=== PATIENT | female | born 1955 | race Caucasian/White ===

== ENCOUNTER → 2020-03-26 11:00 | Outpatient (BNVA) | payer OTHER, SELFPAY | PROVIDERS: PCP Internal Medicine; Referring Provider Internal Medicine; Visit Provider Hospitalist | DX: Z76.89 Persons encountering health services in other specified circumstances (principal) ==

== ENCOUNTER → 2020-05-01 13:26 | Outpatient (BNVA) | payer OTHER, SELFPAY | PROVIDERS: PCP Internal Medicine; Referring Provider Internal Medicine; Visit Provider Hospitalist | DX: Z13.89 Encounter for screening for other disorder (principal) ==

== ENCOUNTER → 2020-05-25 09:19 | Outpatient (BNVA) | payer OTHER, SELFPAY | PROVIDERS: PCP Internal Medicine; Visit Provider Hospitalist | DX: Z76.89 Persons encountering health services in other specified circumstances (principal) ==

== ENCOUNTER → 2020-08-23 09:25 | Outpatient (BNVA) | payer BC, SELFPAY | PROVIDERS: PCP Internal Medicine; Visit Provider Hospitalist ==

== ENCOUNTER → 2020-12-03 15:26 | Outpatient (BNVA) | payer BC, SELFPAY | PROVIDERS: PCP Internal Medicine; Visit Provider Hospitalist ==

== ENCOUNTER 2021-01-01 09:51 | Outpatient (REF) | payer BC, SELFPAY ==
--- NOTE | 2021-01-01 17:32 | PFT_ITS ---
INDICATION: Evaluation of hyper-reactive airways and cough. METHACHOLINE FINDINGS: The patient underwent a methacholine protocol and was provided with methacholine up to a maximum dose of 60 mg. While she received the methacholine, we monitor closely her spirometry. No significant decrease in the FEV1 nor significant decrease in the [id number]. The patient did not decrease her lung capacity. Therefore, no significant response to the methacholine. INTERPRETATION: This is a negative methacholine challenge. The patient does not appear to have evidence of hyper-reactive airways and unlikely to have a diagnosis of asthma. Clinical correlation warranted. MD ELAINA Lomeli/MODL / [id number]
== END 2021-01-01 09:52 | disposition home or self-care (01) ==
LOC: HO.RESP 09:51
PROVIDERS: PCP Internal Medicine; Visit Provider Hospitalist
DX: R05 Cough (principal)
CPT/HCPCS: 94070; J7674

== ENCOUNTER 2021-02-06 09:58 | Day surgery (SDC) | payer BC, SELFPAY ==
--- NOTE | 2021-02-05 09:03 | P.CONAN_ITS ---
Documented by User: Ela Torres NP 02/05/21 09:05 HPI - Anesthesia Eval Consult details Narrative: 65yo F for Bronchoscopy Fiberoptic PMFSH Active Problems Active Problems: All Active Problems (Updated 08/23/20 @ 22:11 by Chip Erickson MD) Asthma-COPD overlap syndrome (Acute) Pulmonary nodules (Acute) Cough (Acute) Bronchiectasis (Acute) Past Medical History Medical History Asthma-COPD overlap syndrome Breast cancer Bronchiectasis Cough Pulmonary nodules Family History Family History Mother No problems noted. Other Lung cancer Social History Social History Patient Tobacco Use Status: Former Tobacco user Tobacco use type: Cigarette Years Smoked: 12 years Use of substances other than those prescribed or required for medical reasons: No Have you been hit, kicked, punched, or otherwise hurt by someone within the past year? If so, by whom?: No Are you DNR?: No Advance Directives: No Advance Directives Information Provided: No Meds Allergies Allergy/AdvReac Type Severity Reaction Status Date / Time Penicillins Allergy Severe Hives Verified 02/06/21 10:18 procaine [From Novocain] Allergy Mild Hives Verified 02/06/21 10:18 vancomycin Allergy Mild Hives Verified 02/06/21 10:18 Home Medications Medication Instructions Recorded Confirmed Last Taken Type atorvastatin 20 mg tablet 20 mg PO BEDTIME 03/10/20 12/03/20 Unknown History benzonatate 200 mg capsule 200 mg PO TID PRN 03/10/20 12/03/20 12/03/20 15:42 History uxxjuzakjy-sigjujfxmgpeq-hxwilziq 1 - 2 tab PO TID PRN 03/10/20 12/03/20 Unknown History 50 mg-325 mg-40 mg tablet colestipol 1 gram tablet 0 g PO 03/10/20 12/03/20 Unknown History diazepam 10 mg tablet 10 mg PO 03/10/20 12/03/20 Unknown History metformin 500 mg tablet,extended 1,500 mg PO DAILY 03/10/20 12/03/20 Unknown History release 24 hr aspirin 81 mg tablet,delayed 81 mg PO DAILY 03/26/20 12/03/20 02/05/21 History release cholecalciferol (vitamin D3) 50 50 mcg PO DAILY 03/26/20 12/03/20 Unknown History mcg (2,000 unit) capsule ipratropium bromide 42 mcg (0.06 2 INTRANASAL BID 03/26/20 12/03/20 Unknown History %) nasal spray irbesartan 300 1 tab PO DAILY 03/26/20 12/03/20 Unknown History mg-hydrochlorothiazide 12.5 mg tablet lansoprazole 30 mg capsule,delayed 30 mg PO DAILY 03/26/20 12/03/20 Unknown History release dextroamphetamine-amphetamine 20 1 tab PO BID 08/23/20 12/03/20 Unknown History mg tablet eplerenone 50 mg tablet 50 mg PO DAILY 12/03/20 12/03/20 Unknown History Exam Exam Date and Time: February 05, 2021 0903 Narrative Narrative: PFT 12/2020 INTERPRETATION:? This is a negative methacholine challenge.? The patient does not appear to have evidence of hyper-reactive airways and unlikely to have a diagnosis of asthma. Clinical correlation warranted. Assessment and Plan Assessment Anesthesia Assessment: Chart Reviewed Documented by User: Leatha Cortés MD 02/06/21 11:32 [facility] Past Medical History Medical History Asthma-COPD overlap syndrome Breast cancer Bronchiectasis Cough Pulmonary nodules Family History Family History Mother No problems noted. Other Lung cancer Family history of problems with anesthesia: No Surgical History History of Problems with Anesthesia: No Social History Social History Patient Tobacco Use Status: Former Tobacco user Tobacco use type: Cigarette Years Smoked: 12 years Use of substances other than those prescribed or required for medical reasons: No Have you been hit, kicked, punched, or otherwise hurt by someone within the past year? If so, by whom?: No Are you DNR?: No Advance Directives: No Advance Directives Information Provided: No Meds Allergies Allergy/AdvReac Type Severity Reaction Status Date / Time Penicillins Allergy Severe Hives Verified 02/06/21 10:18 procaine [From Novocain] Allergy Mild Hives Verified 02/06/21 10:18 vancomycin Allergy Mild Hives Verified 02/06/21 10:18 Home Medications Medication Instructions Recorded Confirmed Last Taken Type atorvastatin 20 mg tablet 20 mg PO BEDTIME 03/10/20 12/03/20 Unknown History benzonatate 200 mg capsule 200 mg PO TID PRN 03/10/20 12/03/20 12/03/20 15:42 History ugmeuyridh-oqddzcqscbdfy-bihrrhsc 1 - 2 tab PO TID PRN 03/10/20 12/03/20 Unknown History 50 mg-325 mg-40 mg tablet colestipol 1 gram tablet 0 g PO 03/10/20 12/03/20 Unknown History diazepam 10 mg tablet 10 mg PO 03/10/20 12/03/20 Unknown History metformin 500 mg tablet,extended 1,500 mg PO DAILY 03/10/20 12/03/20 Unknown History release 24 hr aspirin 81 mg tablet,delayed 81 mg PO DAILY 03/26/20 12/03/20 02/05/21 History release cholecalciferol (vitamin D3) 50 50 mcg PO DAILY 03/26/20 12/03/20 Unknown History mcg (2,000 unit) capsule ipratropium bromide 42 mcg (0.06 2 INTRANASAL BID 03/26/20 12/03/20 Unknown History %) nasal spray irbesartan 300 1 tab PO DAILY 03/26/20 12/03/20 Unknown History mg-hydrochlorothiazide 12.5 mg tablet lansoprazole 30 mg capsule,delayed 30 mg PO DAILY 03/26/20 12/03/20 Unknown History release dextroamphetamine-amphetamine 20 1 tab PO BID 08/23/20 12/03/20 Unknown History mg tablet eplerenone 50 mg tablet 50 mg PO DAILY 12/03/20 12/03/20 Unknown History Exam Airway Mallampati Class: II TM Dist: >3cm Neck ROM: Full Assessment and Plan Assessment Anesthesia Assessment: Anesthesia Plan Discussed Final Anesthetic Review Family History of Problems with Anesthesia: No History of Problems with Anesthesia: No NPO: Yes ASA Class: III Final Preanesthetic Review: No Changes in Pt Med Stat, Meds/Allgs Chart Revie thu, Consent Obtained/Reviewed and Anes Risks/Benef Reviewed Patient Risk: Intermediate Procedure Risk: Low Assessment/Block/Sedation in SS: Assess/Block/Sedation-SS Anesthetic Plan Anesthetic Plan: GA Disposition: Standard PACU
[2021-02-06] VITALS (10 sets, daily range): BP systolic 151–175; BP diastolic 69–95; PULSE 81–94; RESP 16–20; TEMP 36.2–36.4; O2SAT 94–100; BMI 32.2
--- NOTE | 2021-02-06 10:18 | MHC.SHP ---
Pre-Procedural Eval Section A Date of Service: 02/06/21 Section B Chief Complaint: cough Allergies: Allergies Allergy/AdvReac Type Severity Reaction Status Date / Time Penicillins Allergy Severe Hives Verified 02/06/21 10:18 procaine [From Novocain] Allergy Mild Hives Verified 02/06/21 10:18 vancomycin Allergy Mild Hives Verified 02/06/21 10:18 Plan I have reviewed the history and physical and performed a pertinent physical examination on my patient. No changes have occurred unless specified.
[2021-02-06 10:57] LABS: Glucose, Whole Blood 130 mg/dL (60-115)
[2021-02-06] MEDS: Lactated Ringers 1,000 ML 100 ML IVCONT (11:07)
[2021-02-06] MEDS: oxyCODONE HCl Immed Release 5 MG TABLET PO (13:34)
[2021-02-06] MEDS: Throat Lozenge, Medicated LOZENGE 1 LOZENGE MUCOUS MEM (13:34)
[2021-02-06] MEDS: Acetaminophen 325 MG TABLET 650 MG PO (13:34)
[2021-02-06 14:09] LABS: Eosinophils Bronchial 1 %; Lymphocytes Bronchial 8 %; Monocytes Bronchial 3 %; Neutrophils Bronchial 31 %; Other Bronchial 57 %; RBC Bronchial Washing 335 MM*3; WBC Bronchial Washing 12 MM*3
--- NOTE | 2021-02-08 09:07 | OP_ITS ---
SURGEON: Chip Erickson MD PREOPERATIVE DIAGNOSIS: POSTOPERATIVE DIAGNOSIS: PROCEDURE PERFORMED: ESTIMATED BLOOD LOSS: COMPLICATIONS: None, although she did have an episode of vomiting prior to the procedure and she did require to be intubated after she failed the LMA. ANESTHESIA: The patient started with an LMA, although she then desaturated and had episode of vomiting and at that point, she was intubated. Initially, difficult intubation, so therefore required a GlideScope. ASSISTANTS: None. SPECIMENS: ASA CLASSIFICATION: 3. PREOPERATIVE DIAGNOSES: Cough and bronchiectasis. POSTOPERATIVE DIAGNOSES: Bronchitis, bronchiectasis, and cough. PROCEDURES PERFORMED: Bronchoscopy with bronchoalveolar lavage, brushings and washings. DESCRIPTION OF PROCEDURE: After the patient was adequately intubated, the bronchoscope was navigated to the level of the trachea. Tracheal mucosa appeared normal. After lidocaine due to the fact that she has an allergy to novocaine. The tracheobronchial tree examined to the subsegmental level. The patient had significant friable mucosa bilaterally, but left more than right with purulent secretions also noted left more than right, narrowing of the lingula secondary to inflammation. Significant bronchitis appreciated with significant friability of the airways with bleeding with minimal suctioning or manipulation of the bronchoscope. The bronchoscope was navigated to the right middle lobe, where BAL was done with normal saline recovering back around 20 mL. There was significant floppiness and malacia of the airways. A cytologic brush was introduced into the left lower lobe. Bronchial washings were collected bilaterally. The patient did undergo removal of the purulent secretions. No endobronchial lesions or masses. So therefore, biopsies were not done and the patient had already significant friability of the mucosa with easy bleeding. The bronchoscope was then removed. The total endoscopic time was approximately 10 minutes. The patient tolerated procedure, although she did have discomfort after the procedure primarily because of the manipulation during the intubation. INTERPRETATION: 1. Bronchoalveolar lavage (BAL) from the right middle lobe. 2. Bilateral lung washings. 3. Left lower lobe cytologic brush. Chip Erickson MD MR/MODL / [id number]
== END 2021-02-06 13:15 | disposition home or self-care (01) ==
PROVIDERS: PCP Internal Medicine; Visit Provider Hospitalist
PROC: 0BJ08ZZ Inspection of Tracheobronchial Tree, Via Natural or Artificial Opening Endoscopic (ICD-10-PCS; CPT 31622; principal; 2021-02-06 11:30)
DX: J40 Bronchitis, not specified as acute or chronic (principal); J44.9 Chronic obstructive pulmonary disease, unspecified; R91.8 Other nonspecific abnormal finding of lung field; Z85.3 Personal history of malignant neoplasm of breast; Z92.3 Personal history of irradiation; Z79.84 Long term (current) use of oral hypoglycemic drugs; Z79.82 Long term (current) use of aspirin; Z79.899 Other long term (current) drug therapy; Z88.0 Allergy status to penicillin; Z88.8 Allergy status to other drugs, medicaments and biological substances; Z87.891 Personal history of nicotine dependence
CPT/HCPCS: 31623; 31624; 82947; 87071; 87102; 87116; 87205; 88112; 88305; 89051; J1100; J2250; J2405; J3010

== ENCOUNTER → 2021-02-21 15:42 | Outpatient (BNVA) | payer BC, SELFPAY | PROVIDERS: PCP Internal Medicine; Visit Provider Hospitalist ==

== ENCOUNTER → 2021-03-05 09:27 | Outpatient (BNVA) | payer BC, SELFPAY | PROVIDERS: PCP Internal Medicine; Visit Provider Hospitalist ==

== ENCOUNTER → 2021-04-22 15:47 | Outpatient (BNVA) | payer BC, SELFPAY | PROVIDERS: PCP Internal Medicine; Visit Provider Hospitalist | DX: J44.9 Chronic obstructive pulmonary disease, unspecified (principal) ==

== ENCOUNTER → 2021-07-22 15:49 | Outpatient (BNVA) | payer BC, SELFPAY | PROVIDERS: PCP Internal Medicine; Visit Provider Hospitalist ==